=== PATIENT | female | born 1975 ===

== ENCOUNTER 2016-08-27 14:34 | Emergency (ER) | payer MEDICARE, MEDICAID ==
[2016-08-27 14:43] VITALS: BMI 43.7
[2016-08-27 14:46] VITALS: BP 155/98; PULSE 72; RESP 18; TEMP 98.2; O2SAT 100
[2016-08-27] MEDS ORDERED: Povidone Iodine Oint 10% Foilpak UD ONE (14:48)
[2016-08-27] MEDS ORDERED: Lidocaine 1% Inj (20ml) IJ ONE (14:48)
--- NOTE | 2016-08-27 14:50 | ED PDOC ---
HPI: Skin/Bite Injury Time Seen by Provider: 08/27/16 14:44 Chief Complaint (Provider): Painful mass right axilla History Per: Patient History/Exam Limitations: no limitations Onset/Duration Of Symptoms: Days (3) Current Symptoms Are (Timing): Still Present Additional History Per: Patient Additional Complaint(s): The pt is a 41yo female, presents to the ED for evaluation of painful mass on her right axilla for the past 3 days. Pt reports applying warm compresses to the area for the 3 days. She denies any fever or chills. Pt offers no additional medical complaints. Past Medical History Reviewed: Historical Data, Nursing Documentation, Vital Signs Vital Signs: Last Vital Signs Temp 98.2 F 08/27/16 14:44 Pulse 72 08/27/16 14:44 Resp 18 08/27/16 14:44 BP 155/98 H 08/27/16 14:44 Pulse Ox 100 08/27/16 14:52 - Medical History PMH: Anemia, Anxiety, Asthma, Atrial Fibrillation, Back Problems, Bronchitis, Diabetes (borderline - on Metformin. ), HTN Denies: Chronic Kidney Disease, Seizures, Sexually Transmitted Disease - Surgical History Surgical History: (08/22/15) - Family History Family History: States: Diabetes, Hypertension - Living Arrangements Living Arrangements: With Family - Immunization History Hx Tetanus Toxoid Vaccination: No Hx Influenza Vaccination: No Hx Pneumococcal Vaccination: No - Home Medications Home Medications: Ambulatory Orders Medication Instructions Recorded Ferrous Sulfate [Feosol] 325 mg PO BID #60 tab 09/13/15 Labetalol [Trandate] 200 mg PO QID 09/13/15 hydrALAZINE [Apresoline] 50 mg PO TID 09/13/15 Ibuprofen [Motrin] 1 tab PO Q8 PRN #21 tab 10/06/15 Norgestimate-Ethinyl Estradiol 1 each PO BID #28 tablet 01/04/16 [Ortho-Cyclen 28 Tablet] Cephalexin [cephalexin] 500 mg PO Q6 #28 cap 08/27/16 Sulfamethoxazole/Trimethoprim 2 tab PO BID #28 tab 08/27/16 [Bactrim DS 800 mg-160 mg] - Allergies Allergies/Adverse Reactions: Allergies Allergy/AdvReac Type Severity Reaction Status Date / Time codeine Allergy ITCHING Verified 01/14/16 21:00 Review of Systems ROS Statement: Except As Marked, All Systems Reviewed And Found Negative Constitutional: Negative for: Fever, Chills Skin: Positive for: Other (Painful mass right axilla) Physical Exam - Reviewed Nursing Documentation Reviewed: Yes Vital Signs Reviewed: Yes - Physical Exam Appears: Positive for: Well, Non-toxic, No Acute Distress Head Exam: Positive for: ATRAUMATIC, NORMAL INSPECTION, NORMOCEPHALIC Skin: Positive for: Normal Color, Dry Eye Exam: Positive for: Normal appearance Neck: Positive for: Normal Cardiovascular/Chest: Positive for: Regular Rate, Rhythm Respiratory: Negative for: Respiratory Distress Extremity: Positive for: Other (3 cm, erythematous, fluctuant mass present on right axilla) Neurologic/Psych: Positive for: Alert, Oriented - ECG O2 Sat by Pulse Oximetry: 100 (RA) Pulse Ox Interpretation: Normal Medical Decision Making Medical Decision Making: Time: 1451 Impression: Abscess on right axilla Plan: -- I&D of abscess, please refer to procedure note. -- Reassess Scribe Attestation: Documented by Ema Lopez acting as a scribe for GAGANDEEP Bruce Provider Attestation: All medical record entries made by the Scribe were at my direction and personally dictated by me. I have reviewed the chart and agree that the record accurately reflects my personal performance of the history, physical exam, medical decision making, and the department course for this patient. I have also personally directed, reviewed, and agree with the discharge instructions and disposition. Disposition - Clinical Impression Clinical Impression: Abscess - Patient ED Disposition Is Patient to be Admitted: No - Disposition Disposition: Routine/Home Disposition Time: 15:06 Condition: IMPROVED Additional Instructions: Return to ED in 2 days for wound check/packing removal. Prescriptions: Cephalexin [cephalexin] 500 mg PO Q6 #28 cap Sulfamethoxazole/Trimethoprim [Bactrim DS 800 mg-160 mg] 2 tab PO BID #28 tab Instructions: Abscess (ED) Procedures - Time-Out Type of Procedure: I&D Site of Procedure: R axilla - Incision and Drainage Site: Right axilla Blade Size: 11 I & D Procedure: betadine prep, sterile drapes applied, sterile dressing applied , gauze wick placed Progress: Used 1% Lidocaine. Purulent material expressed out of mass. Pt tolerated procedure well.
== END 2016-08-27 15:25 | disposition home or self-care (01) ==
LOC: H.ER 14:34
DX: L02.412 Cutaneous abscess of left axilla (principal)

== ENCOUNTER 2016-08-31 16:32 | Emergency (ER) | payer MEDICAID, MEDICARE ==
[2016-08-31 16:32] VITALS: BMI 43.7
[2016-08-31 16:45] VITALS: BP 158/94; PULSE 79; RESP 18; TEMP 98.7; O2SAT 99
--- NOTE | 2016-08-31 17:23 | ED PDOC ---
HPI: Wound Care - HPI Time Seen by Provider: 08/31/16 16:46 Chief Complaint (Nursing): Wound Check Chief Complaint (Provider): Wound Check History Per: Patient Exam Limitations: no limitations Onset/Duration Of Symptoms: Days (x3 days) Current Symptoms Are (Timing): Better Additional Complaint(s): 41 y/o female presents to the emergency department for wound check and packing removal from abscess to right axilla that was incised and drained on 12/2016. Patient states that area feels much better. Patient is currently taking the antibiotics that were prescribed to her as directed. PMD: Dr. Becky Higginbotham MD Past Medical History Reviewed: Historical Data, Nursing Documentation, Vital Signs Vital Signs: Last Vital Signs Temp 98.7 F 08/31/16 16:43 Pulse 79 08/31/16 16:43 Resp 18 08/31/16 16:43 BP 158/94 H 08/31/16 16:43 Pulse Ox 99 08/31/16 16:43 - Medical History PMH: Anemia, Anxiety, Asthma (Seasonal), Back Problems, Diabetes (borderline - on Metformin. ), HTN - Surgical History Surgical History: (08/22/15) Other surgeries: Abscess I&D - Family History Family History: States: Diabetes, Hypertension - Living Arrangements Living Arrangements: With Family - Social History Current smoker - smoking cessation education provided: Yes (Light smoker <10 cigarettes daily) Alcohol: Occasional Drugs: Denies - Home Medications Home Medications: Ambulatory Orders Medication Instructions Recorded Ferrous Sulfate [Feosol] 325 mg PO BID #60 tab 09/13/15 Labetalol [Trandate] 200 mg PO QID 09/13/15 hydrALAZINE [Apresoline] 50 mg PO TID 09/13/15 Ibuprofen [Motrin] 1 tab PO Q8 PRN #21 tab 10/06/15 Norgestimate-Ethinyl Estradiol 1 each PO BID #28 tablet 01/04/16 [Ortho-Cyclen 28 Tablet] Cephalexin [cephalexin] 500 mg PO Q6 #28 cap 08/27/16 Sulfamethoxazole/Trimethoprim 2 tab PO BID #28 tab 08/27/16 [Bactrim DS 800 mg-160 mg] - Allergies Allergies/Adverse Reactions: Allergies Allergy/AdvReac Type Severity Reaction Status Date / Time codeine Allergy ITCHING Verified 08/31/16 16:43 Review of Systems ROS Statement: Except As Marked, All Systems Reviewed And Found Negative Constitutional: Negative for: Fever, Chills Skin: Positive for: Other (here for abscess wound check) Physical Exam - Reviewed Nursing Documentation Reviewed: Yes Vital Signs Reviewed: Yes - Physical Exam Appears: Positive for: Well, Non-toxic, No Acute Distress Head Exam: Positive for: ATRAUMATIC, NORMAL INSPECTION, NORMOCEPHALIC Skin: Positive for: Normal Color Eye Exam: Positive for: Normal appearance Extremity: Positive for: Other (Well healed abscess to right axillary region with no active drainage. ) Neurologic/Psych: Positive for: Alert, Oriented - ECG O2 Sat by Pulse Oximetry: 99 (RA) Pulse Ox Interpretation: Normal Medical Decision Making Medical Decision Making: Time: 16:46 Initial Impression: Abscess wound check Initial Plan: --Packing was removed without difficulty. Abscess appears well healed. Patient advised to finish course of antibiotics and to apply warm compresses to the area with a warm cloth and Epsom salts as often as possible. --Patient is medically stable, and requires no further treatment in the ED at this time. Patient will be discharged home. Counseling was provided and all questions were answered regarding diagnosis and need for follow up with PCP in 2 days. There is agreement to discharge plan. Return if symptoms persist or worsen. Clinical Impression: Abscess wound check and packing removal Scribe Attestation: Documented by Negra Sung, acting as a scribe for Deirdre Altman PA-C. Provider Scribe Attestation: All medical record entries made by the Scribe were at my direction and personally dictated by me. I have reviewed the chart and agree that the record accurately reflects my personal performance of the history, physical exam, medical decision making, and the department course for this patient. I have also personally directed, reviewed, and agree with the discharge instructions and disposition. Disposition - Clinical Impression Clinical Impression: Admission for wound check of abscess - Patient ED Disposition Is Patient to be Admitted: No Counseled Patient/Family Regarding: Diagnosis, Need For Followup - Disposition Referrals: [facility] [Outside] Disposition: Routine/Home Disposition Time: 17:31 Condition: STABLE Additional Instructions: Continue with current antibiotics to completion. Apply warm compresses with Epsom salts to affected area as often as possible. Follow in 2-3 days with primary doctor. Instructions: Abscess (ED)
== END 2016-08-31 18:02 | disposition home or self-care (01) ==
LOC: H.ER 16:32
DX: Z48.00 Encounter for change or removal of nonsurgical wound dressing (principal)

== ENCOUNTER 2018-01-09 10:27 | Emergency (ER) | payer MEDICARE, MEDICAID ==
[2018-01-09 10:28] VITALS: BMI 43.7
[2018-01-09 10:46] VITALS: RESP 20; TEMP 98.7; O2SAT 99
--- NOTE | 2018-01-09 12:00 | ED PDOC ---
HPI: Female Pain Time Seen by Provider: 01/09/18 11:14 Chief Complaint (Nursing): Female Genitourinary Chief Complaint (Provider): Female Genitourinary History Per: Patient History/Exam Limitations: no limitations Onset/Duration Of Symptoms: Days (x3) Current Symptoms Are (Timing): Still Present Additional Complaint(s): 42 year old female with pmHx of HTN and herniated disc, arrives to ED with complaints of painful urination associated with frequency, urgency, and lower abdominal pressure for the last 3 days. She reports some bloody urine yesterday, thus, prompting ED visit. 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 LMP: 01/03/18. PMD: none provided Past Medical History Reviewed: Historical Data, Nursing Documentation, Vital Signs Vital Signs: Last Vital Signs Temp 98.7 F 01/09/18 10:40 Pulse 81 01/09/18 10:40 Resp 20 01/09/18 10:40 BP 153/100 H 01/09/18 10:40 Pulse Ox 99 01/09/18 10:40 - Medical History PMH: Anxiety, Asthma (Seasonal), Atrial Fibrillation, Back Problems, Bronchitis, Diabetes (borderline - on Metformin. ), HTN, Chronic Pain (back - herniated disc) - Surgical History Surgical History: (08/22/15) Other surgeries: left leg cyst - Family History Family History: States: Diabetes, Hypertension - Social History Current smoker - smoking cessation education provided: Yes Alcohol: None Drugs: Denies - Home Medications Home Medications: Ambulatory Orders Medication Instructions Recorded Ferrous Sulfate [Feosol] 325 mg PO BID #60 tab 09/13/15 RX: Labetalol [Trandate] 200 mg PO QID 09/13/15 RX: hydrALAZINE [Apresoline] 50 mg PO TID 09/13/15 Ibuprofen [Motrin] 1 tab PO Q8 PRN #21 tab 10/06/15 Norgestimate-Ethinyl Estradiol 1 each PO BID #28 tablet 01/04/16 [Ortho-Cyclen 28 Tablet] Cephalexin [cephalexin] 500 mg PO Q6 #28 cap 08/27/16 Sulfamethoxazole/Trimethoprim 2 tab PO BID #28 tab 08/27/16 [Bactrim DS 800 mg-160 mg] Nitrofurantoin Macrocrystals 100 mg PO BID #14 cap 01/09/18 [Macrobid] Phenazopyridine [Pyridium] 200 mg PO BID PRN #4 tab 01/09/18 - Allergies Allergies/Adverse Reactions: Allergies Allergy/AdvReac Type Severity Reaction Status Date / Time codeine Allergy ITCHING Verified 08/31/16 16:43 Review of Systems ROS Statement: Except As Marked, All Systems Reviewed And Found Negative Constitutional: Negative for: Fever, Chills Gastrointestinal: Positive for: Abdominal Pain (lower pressure). Negative for: Nausea, Vomiting Genitourinary Female: Positive for: Dysuria, Frequency (and urgency), Hematuria. Negative for: Vaginal Discharge, Vaginal Bleeding Musculoskeletal: Negative for: Back Pain (flank pain) Physical Exam - Reviewed Nursing Documentation Reviewed: Yes Vital Signs Reviewed: Yes - Physical Exam Comments: GENERAL APPEARANCE: Patient is awake, alert, oriented x 3, in no acute distress. Resting comfortably. SKIN: Warm, dry; (-) cyanosis. EYES: (-) conjunctival pallor. ENMT: Mucous membranes are moist. Airway patent: (-) stridor. NECK: Supple, FROM CHEST AND RESPIRATORY: (-) wheezing; (-) rales, (-) rhonchi; breath sounds equal bilaterally. Respirations even and nonlabored. HEART AND CARDIOVASCULAR: (-) irregularity ABDOMEN AND GI: Soft; (-) tenderness (-) guarding (-) distention. (-) CVA tenderness bilaterally. EXTREMITIES: (-) deformity NEURO AND PSYCH: Mental status as above; (-) focal findings. Gait: steady. Speech: clear . - Laboratory Results Urine POC: Negative - ECG O2 Sat by Pulse Oximetry: 99 (RA) Pulse Ox Interpretation: Normal Medical Decision Making Medical Decision Making: Initial Impression: Dysuria and urine frequency; probable UTI Initial Plan: * U/A * Urine preg * Pyridium 200mg PO * Urine culture * Re-evaluation Urine Preg: negative 1300 U/A reviewed (+) UTI Repeat BP: 136/97 On re-evaluation, patient reports improvement of symptoms. On exam, patient remains AAOx3, in no acute distress. Lungs clear to auscultation, cardiac RRR, abdomen soft, non-tender, repeat neuro exam shows no focal findings. VSS, stable for discharge. Lab /Diagnostic results d/w the patient in great detail. Diagnosis of dysuria, urinary frequency, UTI d/w the patient. Based on history, exam and diagnostic results, plan will be for outpatient follow up. Patient instructed to follow-up with pmd / referral provided / the clinic in 1- 2 days without fail. Advised to take medication as prescribed. Return to the emergency room at any time for any new or worsening symptoms. Patient states she fully agrees with and understands discharge instructions. States that she agrees with the plan and disposition. Verbalized and repeated discharge instructions and plan. I have given the patient opportunity to ask any additional questions. Scribe Attestation: Documented by Nori Plunkett, acting as a scribe for VELMA Byrd. Provider Scribe Attestation: All medical record entries made by the Scribe were at my direction and personally dictated by me. I have reviewed the chart and agree that the record accurately reflects my personal performance of the history, physical exam, medical decision making, and the department course for this patient. I have also personally directed, reviewed, and agree with the discharge instructions and disposition Disposition - Clinical Impression Clinical Impression: Urinary tract infection, Dysuria - Patient ED Disposition Is Patient to be Admitted: No Counseled Patient/Family Regarding: Studies Performed, Diagnosis, Need For Followup, Rx Given - Disposition Referrals: [facility] [Outside] Disposition: Routine/Home Disposition Time: 13:05 Condition: STABLE Additional Instructions: The emergency medical care you received today was directed towards the acute presenting symptoms. If you were prescribed any medication, please fill it and give as directed. It may take several days for your symptoms to resolve. Return to the Emergency Department at any time if symptoms worsen, do not improve, or if any other problems arise. Please contact your doctor in 2 days for re-evaluation and follow up / or call one of the physicians/clinics you have been referred to that are listed on the Patient Visit Information form that is included in your discharge packet. Bring any paperwork you were given at discharge with you along with any medications to your follow up visit. Our treatment cannot replace ongoing medical care by a primary care provider (PCP) outside of the emergency department. Prescriptions: Nitrofurantoin Macrocrystals [Macrobid] 100 mg PO BID #14 cap Phenazopyridine [Pyridium] 200 mg PO BID PRN #4 tab PRN Reason: urinary discomfort Instructions: Urinary Tract Infections in Adults, Dysuria, Adult (DC) Forms: [employer] (Peruvian) Print Language: LATVIAN - POA Present On Arrival: None Results - Lab Results Lab Results: 01/09/18 11:58 Urine Color Yellow Urine Clarity Cloudy Urine pH 6.0 Ur Specific [place] 1.023 Urine Protein Negative Urine Glucose (UA) Neg Urine Ketones Negative Urine Blood Negative Urine Nitrate Negative Urine Bilirubin Negative Urine Urobilinogen 0.2-1.0 Ur Leukocyte Esterase Trace Urine RBC (Auto) 6 H Urine Microscopic WBC 30 H Ur Squamous Epith Cells 15 H Urine Bacteria Rare
[2018-01-09 12:10] LABS: SQUAMOUS EPITHIAL 15 /hpf (0-5); URINE BACTERIA RARE (<OCC); URINE BILIRUBIN NEGATIVE (NEGATIVE); URINE BLOOD NEGATIVE (NEGATIVE); URINE CLARITY CLOUDY (Clear); URINE COLOR YELLOW (YELLOW); URINE GLUCOSE (UA) NEG (Normal); URINE LEUKOCYTE ESTERASE TRACE Leu/uL (Negative); URINE PROTEIN NEGATIVE (NEGATIVE); URINE UROBILINOGEN 0.2-1.0 mg/dL (0.2-1.0)
[2018-01-09 13:10] VITALS: BP 136/97; PULSE 68
== END 2018-01-09 13:17 | disposition home or self-care (01) ==
LOC: H.ER 10:27
DX: N39.0 Urinary tract infection, site not specified (principal); R30.0 Dysuria; I10 Essential (primary) hypertension

== ENCOUNTER 2018-04-02 02:38 | Emergency (ER) | payer MEDICARE, MEDICAID ==
[2018-04-02 03:05] VITALS: BMI 44.3
[2018-04-02 03:08] VITALS: O2SAT 100
[2018-04-02] MEDS ORDERED: Lidocaine 5% Patch TD STA (03:14)
[2018-04-02] MEDS ORDERED: Lidocaine 5% Patch TD ONE (03:35)
--- NOTE | 2018-04-02 04:05 | ED PDOC ---
HPI: Back Time Seen by Provider: 04/02/18 03:09 Chief Complaint (Nursing): Back Pain History Per: Patient History/Exam Limitations: no limitations Current Symptoms Are (Timing): Still Present Additional Complaint(s): Hx of HTN and herniated discs presenting with R upper back/shoulder/arm pain, states it feels like a "pinched nerve" traveling from her R upper back into her arm. Denies weakness, numbness, tingling. Denies chest pain, shortness of breath. PMD: None Past Medical History Reviewed: Historical Data, Nursing Documentation, Vital Signs Vital Signs: Last Vital Signs Temp 98.6 F 04/02/18 03:05 Pulse 72 04/02/18 03:05 Resp 18 04/02/18 03:05 BP 193/114 H 04/02/18 03:19 Pulse Ox 100 04/02/18 03:05 - Medical History PMH: Anxiety, Asthma (Seasonal), Atrial Fibrillation, Back Problems, Bronchitis, Diabetes (borderline - on Metformin. ), HTN, Chronic Pain (back - herniated disc) Denies: Anemia, Chronic Kidney Disease, Seizures, Sexually Transmitted Disease - Surgical History Surgical History: (08/22/15) - Family History Family History: States: Diabetes, Hypertension - Immunization History Hx Tetanus Toxoid Vaccination: No Hx Influenza Vaccination: No Hx Pneumococcal Vaccination: No - Home Medications Home Medications: Ambulatory Orders Medication Instructions Recorded Ferrous Sulfate [Feosol] 325 mg PO BID #60 tab 09/13/15 RX: Labetalol [Trandate] 200 mg PO QID 09/13/15 RX: hydrALAZINE [Apresoline] 50 mg PO TID 09/13/15 Ibuprofen [Motrin] 1 tab PO Q8 PRN #21 tab 10/06/15 Norgestimate-Ethinyl Estradiol 1 each PO BID #28 tablet 01/04/16 [Ortho-Cyclen 28 Tablet] Cephalexin [cephalexin] 500 mg PO Q6 #28 cap 08/27/16 Sulfamethoxazole/Trimethoprim 2 tab PO BID #28 tab 08/27/16 [Bactrim DS 800 mg-160 mg] Nitrofurantoin Macrocrystals 100 mg PO BID #14 cap 01/09/18 [Macrobid] Phenazopyridine [Pyridium] 200 mg PO BID PRN #4 tab 01/09/18 Cyclobenzaprine [Cyclobenzaprine 10 mg PO BID #15 tab 04/02/18 HCl] RX: Lidocaine 1 each TP DAILY #10 adh..patch 04/02/18 - Allergies Allergies/Adverse Reactions: Allergies Allergy/AdvReac Type Severity Reaction Status Date / Time codeine Allergy ITCHING Verified 04/02/18 03:04 Review of Systems ROS Statement: Except As Marked, All Systems Reviewed And Found Negative Musculoskeletal: Positive for: Shoulder Pain, Arm Pain, Back Pain Physical Exam - Reviewed Nursing Documentation Reviewed: Yes Vital Signs Reviewed: Yes - Physical Exam Appears: Positive for: Well, Non-toxic, No Acute Distress Head Exam: Positive for: ATRAUMATIC, NORMAL INSPECTION, NORMOCEPHALIC Skin: Positive for: Normal Color, Warm, DRY Eye Exam: Positive for: EOMI, Normal appearance, PERRL ENT: Positive for: Normal ENT Inspection Neck: Positive for: Normal, Painless ROM Cardiovascular/Chest: Positive for: Regular Rate, Rhythm Respiratory: Positive for: CNT, Normal Breath Sounds Gastrointestinal/Abdominal: Positive for: Normal Exam, Soft Back: Positive for: Muscle Spasm (Tenderness of upper R thoracic musculature, muscle spasm) Rectal: Positive for: Rectal Tone Is: Extremity: Positive for: Normal ROM Neurologic/Psych: Positive for: Alert, Oriented - ECG O2 Sat by Pulse Oximetry: 100 Pulse Ox Interpretation: Normal Medical Decision Making Medical Decision Making: Patient presenting with muscular pain, possibly related to herniated disc --neurovascularly intact --well appearing, but hypertense secondary to pain (spontaneously resolving) --will give symptomatic treatment and re-eval 530AM --Patient felt better after flexeril, asking to be discharged --BP much better --Advised to seek physical therapy Disposition - Clinical Impression Clinical Impression: Back pain - Disposition Referrals: [facility] [Outside] Disposition: Routine/Home Disposition Time: 05:30 Condition: STABLE Additional Instructions: Please see a physical therapist regarding your shoulder/back pain. Prescriptions: Cyclobenzaprine [Cyclobenzaprine HCl] 10 mg PO BID #15 tab RX: Lidocaine 1 each TP DAILY #10 adh..patch Instructions: Upper Back Pain Forms: [employer] ([place] Citizen)
[2018-04-02 05:42] VITALS: BP 153/88; PULSE 61; RESP 16; TEMP 97.8
== END 2018-04-02 05:35 | disposition home or self-care (01) ==
LOC: H.ER 02:38
DX: G89.29 Other chronic pain (principal); I10 Essential (primary) hypertension; J45.909 Unspecified asthma, uncomplicated
CPT/HCPCS: 81025; 96372; 99284; J1885

== ENCOUNTER 2018-04-08 08:21 | Emergency (ER) | payer MEDICARE, MEDICAID ==
[2018-04-08 08:22] VITALS: BMI 46.2
[2018-04-08 08:24] VITALS: RESP 18
[2018-04-08] MEDS ORDERED: Naproxen 500 MG TAB PO STA (09:17)
[2018-04-08] MEDS ORDERED: Acetaminophen-Codeine 300/30 mg Tab PO STA (09:20)
[2018-04-08] MEDS ORDERED: Naproxen 500 MG TAB PO ONE (09:37)
--- NOTE | 2018-04-08 10:24 | ED PDOC ---
Upper Extremity Pain/Injury Time Seen by Provider: 04/08/18 09:05 Chief Complaint (Nursing): Upper Extremity Problem/Injury Chief Complaint (Provider): right arm pain History Per: Patient History/Exam Limitations: no limitations Onset/Duration Of Symptoms: Days Current Symptoms Are (Timing): Still Present Additional Complaint(s): Debbi Mendiola is a 42 year old female, with a past medical history of HTN, A-fib, asthma and diabetes, who presents to the emergency department complaining of right arm pain ongoing for x6 days. Patient was seen here a few days ago and was treated with Toradol and Flexeril with temporary improvement. Patient followed up with PMD x2 days ago and had x-rays done but no results yet. She was unable to sleep the last 2 nights prompting ED visit. Patient has scheduled follow up appointment tomorrow. She denies any fever, chills, trauma or changes in pain. No further medical complaints. PMD: Clinic Past Medical History Reviewed: Historical Data, Nursing Documentation, Vital Signs Vital Signs: Last Vital Signs Temp 97.7 F 04/08/18 08:22 Pulse 75 04/08/18 08:56 Resp 18 04/08/18 08:22 BP 170/97 H 04/08/18 08:56 Pulse Ox 99 04/08/18 08:22 - Medical History PMH: Anxiety, Asthma (Seasonal), Atrial Fibrillation, Back Problems, Bronchitis, Diabetes (borderline - on Metformin. ), HTN, Chronic Pain (back - herniated disc) Denies: Anemia, Chronic Kidney Disease, Seizures, Sexually Transmitted Disease - Surgical History Surgical History: (08/22/15) - Family History Family History: States: Diabetes, Hypertension - Social History Current smoker - smoking cessation education provided: Yes (light smoker <10 cigarettes daily) Alcohol: None Drugs: Denies - Immunization History Hx Tetanus Toxoid Vaccination: No Hx Influenza Vaccination: No Hx Pneumococcal Vaccination: No - Home Medications Home Medications: Ambulatory Orders Medication Instructions Recorded Ferrous Sulfate [Feosol] 325 mg PO BID #60 tab 09/13/15 Labetalol [Trandate] 200 mg PO QID 09/13/15 hydrALAZINE [Apresoline] 50 mg PO TID 09/13/15 Ibuprofen [Motrin] 1 tab PO Q8 PRN #21 tab 10/06/15 Norgestimate-Ethinyl Estradiol 1 each PO BID #28 tablet 01/04/16 [Ortho-Cyclen 28 Tablet] Cephalexin [cephalexin] 500 mg PO Q6 #28 cap 08/27/16 Sulfamethoxazole/Trimethoprim 2 tab PO BID #28 tab 08/27/16 [Bactrim DS 800 mg-160 mg] Nitrofurantoin Macrocrystals 100 mg PO BID #14 cap 01/09/18 [Macrobid] Phenazopyridine [Pyridium] 200 mg PO BID PRN #4 tab 01/09/18 Cyclobenzaprine [Cyclobenzaprine 10 mg PO BID #15 tab 04/02/18 HCl] Lidocaine 1 each TP DAILY #10 adh..patch 04/02/18 - Allergies Allergies/Adverse Reactions: Allergies Allergy/AdvReac Type Severity Reaction Status Date / Time codeine Allergy ITCHING Verified 04/02/18 03:04 Review of Systems ROS Statement: Except As Marked, All Systems Reviewed And Found Negative Constitutional: Negative for: Fever, Chills Musculoskeletal: Positive for: Arm Pain (right ) Physical Exam - Reviewed Nursing Documentation Reviewed: Yes Vital Signs Reviewed: Yes - Physical Exam Appears: Positive for: No Acute Distress Head Exam: Positive for: ATRAUMATIC, NORMAL INSPECTION, NORMOCEPHALIC Skin: Positive for: Normal Color, Warm, Dry Eye Exam: Positive for: Normal appearance, EOMI, PERRL Neck: Positive for: Painless ROM (Full ROM of neck). Negative for: Normal (Right paraspinal tenderness to palpation of neck) Cardiovascular/Chest: Positive for: Regular Rate, Rhythm. Negative for: Murmur Respiratory: Positive for: Normal Breath Sounds. Negative for: Respiratory Distress Gastrointestinal/Abdominal: Positive for: Normal Exam, Soft. Negative for: Tenderness Back: Positive for: Normal Inspection. Negative for: L CVA Tenderness, R CVA Tenderness, Vertebral Tenderness Extremity: Positive for: Normal ROM (upper extremities). Negative for: Deformity, Swelling Neurologic/Psych: Positive for: Alert, Oriented, Other (normal strength on upper extremities and sensation intact). Negative for: Motor/Sensory Deficits - ECG O2 Sat by Pulse Oximetry: 99 (RA) Pulse Ox Interpretation: Normal Medical Decision Making Medical Decision Making: Time: 09:05 Initial Impression: Continuous cervicalgia. Initial Plan: --Tylenol/Codeine 1 tab PO --Flexeril 10 mg PO --Naproxen 500 mg PO --Reevaluation 09:35 Patient states she did not like injection of Toradol. Due to pain will give Naproxen, Flexeril and reassess patient. Review of x-rays showed no abnormalities 10:23 Patient reports pain has mildly improved. Patient advised to follow up with PMD tomorrow. Return parameters discussed. Scribe Attestation: Documented by Doug Iglesias, acting as a scribe for Maria Esther Simeon MD Provider Scribe Attestation: All medical record entries made by the Scribe were at my direction and personally dictated by me. I have reviewed the chart and agree that the record accurately reflects my personal performance of the history, physical exam, medical decision making, and the department course for this patient. I have also personally directed, reviewed, and agree with the discharge instructions and disposition. Disposition - Clinical Impression Clinical Impression: Back pain, Cervicalgia - Disposition Disposition: Routine/Home Disposition Time: 10:23 Condition: IMPROVED Additional Instructions: Take Ibuprofen or Tylenol for pain. Gentle stretches and warm bath or compress for loosing of muscles. Take Flexeril twice per day as previously prescribed. Follow up with primary doctor as previously scheduled tomorrow. Instructions: Upper Back Pain (DC), Chronic Neck Pain (DC) Forms: [employer] (Israeli)
[2018-04-08 10:35] VITALS: BP 159/82; PULSE 84; TEMP 98.7
[2018-04-08 10:38] VITALS: O2SAT 99
== END 2018-04-08 10:30 | disposition home or self-care (01) ==
LOC: H.ER 08:21
DX: M54.2 Cervicalgia (principal); M54.9 Dorsalgia, unspecified; F17.210 Nicotine dependence, cigarettes, uncomplicated; I10 Essential (primary) hypertension; E11.9 Type 2 diabetes mellitus without complications; G89.29 Other chronic pain; J45.909 Unspecified asthma, uncomplicated

== ENCOUNTER 2018-07-18 01:08 | Emergency (ER) | payer MEDICARE ==
[2018-07-18 01:09] VITALS: BMI 46.2
[2018-07-18 01:34] VITALS: BP 156/76; PULSE 84; RESP 17; TEMP 97.8; O2SAT 99
[2018-07-18 03:30] LABS: SQUAMOUS EPITHIAL 3 /hpf (0-5); URINE BILIRUBIN NEGATIVE (NEGATIVE); URINE BLOOD MODERATE (NEGATIVE); URINE CLARITY TURBID (Clear); URINE COLOR YELLOW (YELLOW); URINE GLUCOSE (UA) NEG (NEGATIVE); URINE LEUKOCYTE ESTERASE LARGE Leu/uL (Negative); URINE PROTEIN 100 mg/dL (NEGATIVE); URINE UROBILINOGEN 0.2-1.0 mg/dL (0.2-1.0)
--- NOTE | 2018-07-18 03:46 | ED PDOC ---
HPI: Abdomen Time Seen by Provider: 07/18/18 01:38 Chief Complaint (Nursing): Abdominal Pain Chief Complaint (Provider): Abdominal Pain History Per: Patient History/Exam Limitations: no limitations Onset/Duration Of Symptoms: Days (x 2) Current Symptoms Are (Timing): Still Present Location Of Pain/Discomfort: Suprapubic Quality Of Discomfort: "Pain" Associated Symptoms: Back Pain, Urinary Symptoms (hesitancy and dysuria) Additional Complaint(s): 43 year old female with a history of HTN presents to the ED for evaluation of suprapubic pain, hesitancy and dysuria associated with some mild lower back pain for two days. Patient denies nausea, vomiting and fever. PMD: none provided Past Medical History Reviewed: Historical Data, Nursing Documentation, Vital Signs Vital Signs: Last Vital Signs Temp 97.8 F 07/18/18 01:19 Pulse 84 07/18/18 01:19 Resp 17 07/18/18 01:19 BP 156/76 H 07/18/18 01:19 Pulse Ox 99 07/18/18 01:19 Primary Care Provider: FAMILY PROVIDER,NO - Medical History PMH: Anxiety, Asthma (Seasonal), Atrial Fibrillation, Back Problems, Bronchitis, Diabetes (borderline - on Metformin. ), HTN, Chronic Pain (back - herniated disc) Denies: Anemia, Chronic Kidney Disease, Seizures, Sexually Transmitted Disease - Surgical History Surgical History: (08/22/15) - Family History Family History: States: Diabetes, Hypertension - Immunization History Hx Tetanus Toxoid Vaccination: No Hx Influenza Vaccination: No Hx Pneumococcal Vaccination: No - Home Medications Home Medications: Ambulatory Orders Medication Instructions Recorded Ferrous Sulfate [Feosol] 325 mg PO BID #60 tab 09/13/15 Labetalol [Trandate] 200 mg PO QID 09/13/15 hydrALAZINE [Apresoline] 50 mg PO TID 09/13/15 Ibuprofen [Motrin] 1 tab PO Q8 PRN #21 tab 10/06/15 Norgestimate-Ethinyl Estradiol 1 each PO BID #28 tablet 01/04/16 [Ortho-Cyclen 28 Tablet] Cephalexin [cephalexin] 500 mg PO Q6 #28 cap 08/27/16 Sulfamethoxazole/Trimethoprim 2 tab PO BID #28 tab 08/27/16 [Bactrim DS 800 mg-160 mg] Nitrofurantoin Macrocrystals 100 mg PO BID #14 cap 01/09/18 [Macrobid] Phenazopyridine [Pyridium] 200 mg PO BID PRN #4 tab 01/09/18 Cyclobenzaprine [Cyclobenzaprine 10 mg PO BID #15 tab 04/02/18 HCl] Lidocaine 1 each TP DAILY #10 adh..patch 04/02/18 Nitrofurantoin Macrocrystals 100 mg PO BID 5 Days cap 07/18/18 [Macrobid] - Allergies Allergies/Adverse Reactions: Allergies Allergy/AdvReac Type Severity Reaction Status Date / Time codeine Allergy ITCHING Verified 04/02/18 03:04 Review of Systems ROS Statement: Except As Marked, All Systems Reviewed And Found Negative Constitutional: Negative for: Fever Gastrointestinal: Positive for: Abdominal Pain. Negative for: Nausea, Vomiting Genitourinary Female: Positive for: Dysuria, Other (hesistancy) Musculoskeletal: Positive for: Back Pain (mild lower back pain) Physical Exam - Reviewed Nursing Documentation Reviewed: Yes Vital Signs Reviewed: Yes - Physical Exam Appears: Positive for: Well, Non-toxic, No Acute Distress Head Exam: Positive for: ATRAUMATIC, NORMAL INSPECTION, NORMOCEPHALIC Skin: Positive for: Normal Color, Warm, Dry Eye Exam: Positive for: EOMI, Normal appearance, PERRL Neck: Positive for: Normal, Painless ROM, Supple Cardiovascular/Chest: Positive for: Regular Rate, Rhythm. Negative for: Murmur Respiratory: Positive for: Normal Breath Sounds. Negative for: Respiratory Distress Gastrointestinal/Abdominal: Positive for: Normal Exam, Soft. Negative for: Tenderness Back: Positive for: Normal Inspection. Negative for: L CVA Tenderness, R CVA Tenderness Extremity: Positive for: Normal ROM (x4). Negative for: Deformity Neurological/Psych: Positive for: Awake, Alert, Normal Tone, Oriented (x 3). Negative for: Motor/Sensory Deficits - ECG O2 Sat by Pulse Oximetry: 99 (RA) Pulse Ox Interpretation: Normal Medical Decision Making Medical Decision Makin:59 MDM: likely simple cystitis Not concerned for acute pyelonephritis at this time Orders: --urine dip --Urine preg --UA --Urine cx 03:01 --Pyridium 200 mg PO --Patient is with normal vitals and in no distress. She is stable for outpatient follow up. Return precautions discussed. Scribe Attestation: Documented by Rani Butcher, acting as a scribe Brooklyn Werner MD Provider Scribe Attestation: All medical record entries made by the Scribe were at my direction and personally dictated by me. I have reviewed the chart and agree that the record accurately reflects my personal performance of the history, physical exam, medical decision making, and the department course for this patient. I have also personally directed, reviewed, and agree with the discharge instructions and disposition. Disposition - Clinical Impression Clinical Impression: UTI (urinary tract infection) - Patient ED Disposition Is Patient to be Admitted: No - Disposition Referrals: [facility] [Outside] Abbi Strickland MD [Medical Doctor] - Disposition: Routine/Home Disposition Time: 03:01 Condition: IMPROVED Prescriptions: Nitrofurantoin Macrocrystals [Macrobid] 100 mg PO BID 5 Days cap Instructions: Urinary Tract Infections in Adults Forms: [employer] (Swedish)
== END 2018-07-18 03:30 | disposition home or self-care (01) ==
LOC: H.ER 01:08
DX: N39.0 Urinary tract infection, site not specified (principal); I10 Essential (primary) hypertension; G89.29 Other chronic pain

== ENCOUNTER 2018-08-11 21:17 | Emergency (ER) | payer MEDICARE, MEDICAID ==
[2018-08-11 21:17] VITALS: BMI 46.2
[2018-08-11 21:36] VITALS: O2SAT 100
--- NOTE | 2018-08-11 22:01 | ED PDOC ---
HPI: Dental Pain/Injury Time Seen by Provider: 08/11/18 21:39 Chief Complaint (Nursing): Dental Pain Chief Complaint (Provider): dental pain History Per: Patient History/Exam Limitations: no limitations Onset/Duration Of Symptoms: Days (3x) Current Symptoms Are (Timing): Still Present Severity: Moderate Additional Complaint(s): 43 year old female with no pertinent past medical history presents to the ED for an evaluation of right lower toothache that started 2x days ago. Patient reports taking tylenol at home with transient relief. Patient is requesting antibiotics for now until she can see her dentist. Patient denies having fevers or trauma. PMD: None provided Past Medical History Reviewed: Historical Data, Nursing Documentation, Vital Signs Vital Signs: Last Vital Signs Temp 98.1 F 08/11/18 21:33 Pulse 70 08/11/18 21:33 Resp 16 08/11/18 21:33 BP 110/72 08/11/18 21:33 Pulse Ox 100 08/11/18 21:33 TIFFANY Report Viewed: Yes Primary Care Provider: FAMILY PROVIDER,NO - Medical History PMH: Anxiety, Asthma (Seasonal), Atrial Fibrillation, Back Problems, Bronchitis, Diabetes (borderline - on Metformin. ), HTN, Chronic Pain (back - herniated disc) Denies: Anemia, Chronic Kidney Disease, Seizures, Sexually Transmitted Disease - Surgical History Surgical History: (08/22/15) - Family History Family History: States: Diabetes, Hypertension - Social History Current smoker - smoking cessation education provided: Yes Alcohol: None Drugs: Denies - Immunization History Hx Tetanus Toxoid Vaccination: No Hx Influenza Vaccination: No Hx Pneumococcal Vaccination: No - Home Medications Home Medications: Ambulatory Orders Medication Instructions Recorded Ferrous Sulfate [Feosol] 325 mg PO BID #60 tab 09/13/15 Labetalol [Trandate] 200 mg PO QID 09/13/15 hydrALAZINE [Apresoline] 50 mg PO TID 09/13/15 Ibuprofen [Motrin] 1 tab PO Q8 PRN #21 tab 10/06/15 Norgestimate-Ethinyl Estradiol 1 each PO BID #28 tablet 01/04/16 [Ortho-Cyclen 28 Tablet] Cephalexin [cephalexin] 500 mg PO Q6 #28 cap 08/27/16 Sulfamethoxazole/Trimethoprim 2 tab PO BID #28 tab 08/27/16 [Bactrim DS 800 mg-160 mg] Nitrofurantoin Macrocrystals 100 mg PO BID #14 cap 01/09/18 [Macrobid] Phenazopyridine [Pyridium] 200 mg PO BID PRN #4 tab 01/09/18 Cyclobenzaprine [Cyclobenzaprine 10 mg PO BID #15 tab 04/02/18 HCl] Lidocaine 1 each TP DAILY #10 adh..patch 04/02/18 Nitrofurantoin Macrocrystals 100 mg PO BID 5 Days cap 07/18/18 [Macrobid] Ciprofloxacin [Cipro] 500 mg PO BID #10 tab 07/20/18 Amoxicillin [Amoxil 500 mg Cap] 500 mg PO BID #19 cap 08/11/18 - Allergies Allergies/Adverse Reactions: Allergies Allergy/AdvReac Type Severity Reaction Status Date / Time codeine Allergy ITCHING Verified 04/02/18 03:04 Review of Systems ROS Statement: Except As Marked, All Systems Reviewed And Found Negative Constitutional: Negative for: Fever ENT: Positive for: Other (right lower toothache) Physical Exam - Reviewed Nursing Documentation Reviewed: Yes Vital Signs Reviewed: Yes - Physical Exam Appears: Positive for: Well, Non-toxic, No Acute Distress Head Exam: Positive for: ATRAUMATIC, NORMOCEPHALIC Skin: Positive for: Normal Color, Warm, Dry Eye Exam: Positive for: Normal appearance ENT: Positive for: Other (right pre-molar gingival swelling, poor dentition.) Neurological/Psych: Positive for: Awake, Alert, Oriented (3x) - ECG O2 Sat by Pulse Oximetry: 100 (RA) Pulse Ox Interpretation: Normal Medical Decision Making Medical Decision Makin:39 Initial impression: 43 year old female with a toothache Initial plan: * amoxil 500 mg cap 500 mg PO Patient advised to follow up with dentist. ScribeAttestation: Documented Gaby Ceballos, acting as a scribe for Hank Siegel. Provider ScribeAttestation: All medical record entries made by the Scribe were at my direction and personally dictated by me. I have reviewed the chart and agree that the record accurately reflects my personal performance of the history, physical exam, medical decision making, and the department course for this patient. I have also personally directed, reviewed, and agree with the discharge instructions and disposition. Disposition - Clinical Impression Clinical Impression: Toothache - Patient ED Disposition Is Patient to be Admitted: No - Disposition Referrals: [facility] [Outside] [facility] [Outside] Disposition: Routine/Home Disposition Time: 22:00 Condition: STABLE Additional Instructions: FOLLOW UP WITH DENTIST FOR FURTHER EVALUATION RETURN TO ED IMMEDIATELY IF SYMPTOMS WORSEN Prescriptions: Amoxicillin [Amoxil 500 mg Cap] 500 mg PO BID #19 cap Instructions: Dental Pain (DC) Forms: [employer] (Salvadorean) Print Language: ICELANDIC
[2018-08-11 22:10] VITALS: BP 108/68; PULSE 72; RESP 17; TEMP 98
== END 2018-08-11 22:08 | disposition home or self-care (01) ==
LOC: H.ER 21:17
DX: K08.89 Other specified disorders of teeth and supporting structures (principal); F17.200 Nicotine dependence, unspecified, uncomplicated; I10 Essential (primary) hypertension; I48.91 Unspecified atrial fibrillation